=== PATIENT | female | born 1965 | race Caucasian/White ===

== ENCOUNTER → 2018-04-28 15:05 | Outpatient (CLI) | payer OTHER, SELFPAY ==
--- NOTE | 2018-04-28 15:16 | XR_ITS ---
XR knee LT 3V HISTORY: ITS.REASON: LEFT KNEE PAIN ORDERING PHYSICIAN: Rashard Mejia PATIENT AGE: 52 years COMPARISON: None FINDINGS: No fracture or dislocation. No lytic or blastic change. Normal mineralization. No significant arthritic changes evident. There is increased density in the suprapatellar region suggesting knee joint effusion. IMPRESSION: Suprapatellar effusion otherwise negative left knee
== END ==
PROVIDERS: PCP Internal Medicine; Visit Provider Internal Medicine
DX: M25.562 Pain in left knee (principal)
CPT/HCPCS: 73562

== ENCOUNTER → 2018-06-16 13:58 | Outpatient (CLI) | payer OTHER, SELFPAY ==
--- NOTE | 2018-06-16 14:04 | US_ITS ---
US soft tissue head and neck CLINICAL INDICATION: ITS.REASON: LIPOMA, NECK MASS ORDERING PHYSICIAN: Rashard Mejia PATIENT AGE: 52 years Comparison: None FINDINGS: Corresponding to the palpable abnormality the left neck there is a 1.6 x 0.6 cm area of heterogeneous echogenicity mostly hypoechoic with internal lacy appearance consistent with a lipoma. These within the left neck adjacent to the carotid there is a small lymph node which measures 1.6 x 0.6 cm. No fluid collections are evident. IMPRESSION: Palpable abnormality of the left neck corresponds to a small lipoma
== END ==
PROVIDERS: PCP Internal Medicine; Visit Provider Internal Medicine
DX: R22.1 Localized swelling, mass and lump, neck (principal)
CPT/HCPCS: 76536

== ENCOUNTER → 2018-11-06 14:57 | Outpatient (CLI) | payer BC, SELFPAY ==
--- NOTE | 2018-11-06 15:02 | XR_ITS ---
XR foot wt bearing LT 3V HISTORY: Bilateral foot pain ITS.REASON: pain ORDERING PHYSICIAN: Alma Cyr DPM PATIENT AGE: 53 years COMPARISON: Right foot same date FINDINGS: No fracture or dislocation. No lytic or blastic change. There is normal mineralization.. The joint spaces are well-preserved. No significant degenerative/arthritic changes. No erosive changes evident. There is a small spur of the calcaneus at insertion of plantar tendon. The plantar arch is normal. IMPRESSION: Small calcaneal spur otherwise negative left foot
--- NOTE | 2018-11-06 15:02 | XR_ITS ---
XR foot wt bearing RT 3V HISTORY: Bilateral foot pain ITS.REASON: pain ORDERING PHYSICIAN: Alma Cyr DPM PATIENT AGE: 53 years COMPARISON: Left foot same date FINDINGS: Weightbearing AP lateral and oblique films were obtained. No fracture or dislocation. No lytic or blastic change. There is normal mineralization.. The joint spaces are well-preserved. No significant degenerative/arthritic changes. No erosive changes evident. There is a small spur of the calcaneus at insertion of plantar tendon. The plantar arch is normal. IMPRESSION: Small calcaneal spur otherwise negative right foot
== END ==
PROVIDERS: PCP Internal Medicine; Visit Provider Podiatrist
DX: M79.672 Pain in left foot (principal); M79.671 Pain in right foot
CPT/HCPCS: 73630

== ENCOUNTER → 2019-04-23 10:52 | Outpatient (CLI) | payer BC, SELFPAY ==
[2019-04-23 12:09] LABS: Basophils % 0.4 % (0.1-2.0); Eosinophils # 0.2 K/mm3 (0.0-0.4); Eosinophils % 2.9 % (0.1-12.0); Hematocrit 41.3 % (37.0-47.0); Hemoglobin 13.4 g/dL (12.2-16.2); Lymphocytes # 2.4 K/mm3 (0.7-4.5); Lymphocytes % 28.6 % (10-50); Mean Corpuscular HGB Conc 32.5 g/dL (31.8-35.4); Mean Corpuscular Hemoglobin 27.4 pg (27.0-31.2); Mean Corpuscular Volume 84.2 fl (81-99); Mean Platelet Volume 6.6 fl (7.4-10.4); Monocytes # 0.5 K/mm3 (0.1-1.0); Monocytes % 5.5 % (1.7-9.3); Neutrophils # 5.2 K/mm3 (1.8-7.8); Neutrophils % 62.7 % (37.0-80.0); Platelet Count 399 K/mm3 (142-424); Red Cell Distribution Width 13.3 % (11.5-17.5); White Blood Count 8.3 K/mm3 (4.8-10.8)
[2019-04-23 12:57] LABS: Alanine Aminotransferase 32 U/L (12-78); Albumin Level 3.8 gm/dL (3.4-5.0); Albumin/Globulin Ratio 1.2 (1.1-1.8); Alkaline Phosphatase 80 U/L (46-116); Anion Gap 14.4 mEq/L (5-15); Aspartate Amino Transferase 22 U/L (15-37); Bilirubin,Total 0.4 mg/dL (0.2-1.0); Blood Urea Nitrogen 9 mg/dL (7-18); Calcium 9.3 mg/dL (8.5-10.1); Carbon Dioxide 27 mmol/L (21.0-32.0); Chloride 103 mmol/L (98-107); Chol/HDL Ratio 3.8 (1-3.5); Cholesterol 144 mg/dL (140-200); Creatinine,Serum 0.92 mg/dL (0.55-1.02); Estimated Glomerular Filt Rate 64 ml/min (>60); GFR (African American) 78 ML/MIN (>60); Globulin 3.1 gm/dl (1.3-3.2); Glucose 90 mg/dL (74-106); HDL Cholesterol 38 mg/dL (29-89); LDL Cholesterol 93 mg/dL (0-130); Potassium 4.4 mmoL/L (3.5-5.1); Sodium 140 mmol/L (136-145); Thyroid Stimulating Hormone 3.71 uIU/ml (0.358-3.740); Total Protein,Serum 6.9 gm/dL (6.4-8.2); Triglycerides 63 mg/dL (30-200); VLDL Cholesterol 13 mg/dL (0-40)
== END ==
PROVIDERS: Visit Provider Internal Medicine
DX: G47.33 Obstructive sleep apnea (adult) (pediatric) (principal); I10 Essential (primary) hypertension; R00.2 Palpitations; D17.9 Benign lipomatous neoplasm, unspecified
CPT/HCPCS: 36415; 80053; 80061; 84443; 85025

== ENCOUNTER → 2020-02-21 09:08 | Outpatient (CLI) | payer OTHER, SELFPAY ==
--- NOTE | 2020-02-21 09:13 | MM_ITS ---
PROCEDURE: MM DIG SCREENING MAMM BI W/CAD Digital Breast Tomosynthesis Included CLINICAL INDICATION: SCREENING There is no personal or family history of breast cancer COMPARISON: DMSB DIGITAL MAMM-SCREEN BILATERAL from 08/27/2011 [place] MAMMO SCRN DIGITL BILAT from 02/19/2015 [place] MAMMO DIAG DIGITL LT from 03/04/2015 TECHNIQUE: Standard CC and MLO images and 3D Tomosynthesis was obtained. R2 CAD reviewed. FINDINGS: Moderate scattered fibroglandular densities are seen throughout both breasts. There are couple of benign-appearing microcalcifications in each breast. There is no suspicious lesion in either breast and no suspicious microcalcifications. IMPRESSION: Fibrofatty parenchyma with no suspicious lesions seen BI-RAD Category: 2 Benign Finding(s) FOLLOW-UP: 1YR 1 Year Follow-up (A letter has been sent to the patient regarding results of the study.) Dictated by: Dr. Roberto Ellington MD 03/01/2020 08:[address] Roberto Ellington MD in [place] 03/01/2020 08:17
== END ==
PROVIDERS: PCP Internal Medicine; Visit Provider Internal Medicine
DX: Z12.31 Encounter for screening mammogram for malignant neoplasm of breast (principal)
CPT/HCPCS: 77063; 77067

== ENCOUNTER → 2021-08-18 14:14 | Outpatient (CLI) | payer BC, SELFPAY | PROVIDERS: Visit Provider Nurse Practitioner | DX: U07.1 COVID-19 (principal) | CPT/HCPCS: C9803; U0003; U0005 ==

== ENCOUNTER → 2022-11-18 14:59 | Outpatient (CLI) | payer BC, SELFPAY ==
--- NOTE | 2022-11-18 15:03 | MM_ITS ---
PROCEDURE INFORMATION: Exam: MG Bilateral Screening 3D Mammography Exam date and time: 11/18/2022 3:00 PM Age: 57 years old Clinical indication: Screening. No family history of breast cancer. TECHNIQUE: Imaging protocol: Bilateral Screening tomosynthesis and 2D mammography including computer-aided detection (CAD) when performed. COMPARISON: 1. MG MM DIG SCREENING MAMM BI W/CAD 02/21/2020 9:26 AM 2. MG MA MAMMO DIAG DIGITL LT 03/04/2015 10:12 AM 3. MG DMSB DIGITAL MAMM-SCREEN BILATERAL 08/27/2011 3:42 PM FINDINGS: MAMMOGRAPHY: Breast composition: There are scattered areas of fibroglandular density. Mass: None. Architectural distortion: None. Calcifications: Bilateral benign-appearing secretory type calcifications. No suspicious calcifications. Asymmetric density: None. Skin thickening: None. Axillary adenopathy: None. IMPRESSION: No mammographic evidence of malignancy. Annual screening is recommended unless otherwise clinically indicated. ASSESSMENT: BI-RADS Category 2: Benign
== END ==
PROVIDERS: PCP Internal Medicine; Visit Provider Internal Medicine
DX: Z12.31 Encounter for screening mammogram for malignant neoplasm of breast (principal)
CPT/HCPCS: 77063; 77067

== ENCOUNTER → 2022-12-14 15:26 | Outpatient (CLI) | payer BC, SELFPAY | LOC: RT 15:26 | PROVIDERS: PCP Internal Medicine; Visit Provider Internal Medicine | DX: R06.09 Other forms of dyspnea (principal) | CPT/HCPCS: 93306 ==

== ENCOUNTER 2022-12-20 16:00 | Outpatient (RCR) | payer BC, SELFPAY ==
--- NOTE | 2022-11-25 18:10 | HMH.PTOPEV ---
PT Outpatient Evaluation Rehab PT Outpatient Evaluation Start: 11/25/22 15:03 Freq: Status: Active Protocol: Document 11/25/22 15:03 [email or web address] (Rec: 11/25/22 18:10 [email or web address] [email or web address]) E-signed By Omi Vera, PT Outpatient Therapy Subjective History Subjective History Pt. is a 57 year old female whom presents to [facility] Outpatient Physical Therapy Services in [place] for the initial evaluation this date( 11/25/22) w/ c/o chronic and intermittent RLE and R-sided LB/hip P!, numbness, and muscle spasms of insidious onset that has progressively worsened in the last 6 months to 1 year. Pt. reports initial onset of symptoms was May 2021 while visiting [place], [place], but stated they were more intermittent/intense than current symptoms. Pt. described symptoms as more numbness w/ initial onset. Pt. reports symptoms then began to worsen 6 months to 1 year ago. Pt. reports symptoms began(2020) out as numbness that would radiate into the foot/digits, now(6 months to 1 year ago) pt. describes symptoms as a sharp and shooting P! that refers to the foot/digits. Pt. also reports sleep has been disrupted secondary to current symptoms. Pt. repots symptoms worsen w/ standing and ambulation. Pt. reports having symptom relief w/ sitting, prescribed medications, and laying down. Pt. reports sometimes taking 15-20 minutes after sitting until symptoms subside. Pt. denies having recent diagnostic imaging nor injections for current complaint. Pt. denies having numbness/tingling into LLE, denies saddle paresthesia,
== END 2023-01-24 16:40 | disposition home or self-care (01) ==
LOC: PT 16:00
PROVIDERS: PCP Internal Medicine; Visit Provider Internal Medicine
DX: M54.31 Sciatica, right side (principal)
CPT/HCPCS: 97012; 97110; 97140; 97163

== ENCOUNTER → 2023-02-17 12:53 | Outpatient (CLI) | payer BC, SELFPAY ==
--- NOTE | 2023-02-17 12:59 | MR_ITS ---
FINAL REPORT CLINICAL HISTORY: SCIATICA RIGHT SIDED BACK PAIN. COMPARISON: None FINDINGS: Multiplanar MR imaging of the lumbar spine was performed without contrast. On the sagittal T2-weighted images, disc degeneration is seen at several levels. The vertebral alignment is normal. There is no evidence of fracture. No bony mass is identified. The conus has an unremarkable appearance. T12-L1: No significant canal stenosis or neuroforaminal narrowing. L1-2: An annular bulge is present. There is no significant canal stenosis or neural foraminal narrowing. L2-3: An annular bulge is present with mild anterior osteophyte formation. There is mild bilateral neural foraminal narrowing. L3-4: An annular bulge is present with mild anterior osteophyte formation. There is mild bilateral neural foraminal narrowing. L4-5: An annular bulge is with mild anterior osteophyte formation. There is a left paracentral disc protrusion which produces left L5 nerve root impingement. There is mild AP canal diameter stenosis with an AP canal diameter of 7 mm. Moderate bilateral neural foraminal narrowing is present. L5-S1: An annular bulge is present. There is a left sided broad-based foraminal disc protrusion, and mild left neural foraminal narrowing. IMPRESSION: Multilevel degenerative disc disease and spondylosis as described, most severe at the L4-5 and L5-S1 levels. Reviewed, Interpreted and Dictated by Gilberto Mendosa III, MD Transcribed by Andressa Rasmussen Authenticated and [facility]
== END ==
LOC: RAD 12:53
PROVIDERS: PCP Internal Medicine; Visit Provider Internal Medicine
DX: M54.50 Low back pain, unspecified (principal); M54.31 Sciatica, right side
CPT/HCPCS: 72148; 76376

== ENCOUNTER 2025-02-18 16:52 | Outpatient (CLI) | payer BC, SELFPAY ==
--- OUTSIDE RECORDS SUMMARY | 2025-02-18 16:54 | XMS_ITS | Clinical Summary ---
Author Organization [facility] Address [address] [place] [address] Care Team Providers Care Customs Manager Name Role Phone Rashard Mejia MD Primary Care Provider [phone] Allergies No known active allergies Medications meloxicam (Mobic) 7.5 MG tablet TAKE ONE TABLET BY MOUTH EVERY DAY --TAKE WITH FOOD-- 04/14/2021 Active metoprolol succinate XL (Toprol-XL) 100 MG 24 hr tablet Take 100 mg by mouth 1 (one) time each day. 04/14/2021 Active Social History Tobacco Use Types Packs/Day Years Used Date Smoking Tobacco: Never Smokeless Tobacco: Never Alcohol Use Standard Drinks/Week Comments Never 0 (1 standard drink = 0.6 oz pur e alcohol) Comments Unknown Sex and Gender Information Value Date Recorded Sex Assigned at Not on file Legal Sex Female 8:22 PM EDT Gender Identity Not on file Sexual Orientation Not on file Last Filed Vital Signs Vital Sign Reading Time Taken Comments Blood Pressure 149/84 06/12/2021 11:20 AM EDT Pulse 73 06/12/2021 11:20 AM EDT Temperature 36.9 C (98.5 F) 06/12/2021 11:20 AM EDT Respiratory Rate - - Oxygen Saturation - - Inhaled Oxygen Concentration - - Weight 117 kg (258 lb) 06/12/2021 11:20 AM EDT Height 167.6 cm (5' 6 ) 06/12/2021 11:20 AM EDT Body Mass Index 41.64 06/12/2021 11:20 AM EDT Plan of Treatment Health Maintenance Due Date Last Done Comments [facility]-Depression Screening 1965 [facility]-Infant/Child/Adol SDOH Screenings 1965 [facility]- SDOH Screenings 1985 [facility]-Adult SDOH Screenings 1985 [facility]-DTaP,Tdap,and Td Vaccine s (1 - Tdap) 1986 [facility]-Hepatitis B Vaccines (1 of 3 - 19+ 3-dose series) 1986 [facility]-Pap Smear 12/26/1999 12/25/1996 [facility]-Cervical Cancer Screening 12/25/2001 [facility]-HPV/Cotest 12/25/2001 12/25/1996 CT Colonography 2012 Colonoscopy 2012 FIT-DNA 2012 FIT 2012 FOBT 2012 Sigmoidoscopy 2012 [facility]-Colorectal Cancer Screening 2012 [facility]-Pneumococcal Vaccine: 50 + Years (1 of 1 - PCV) 2017 [facility]-Zoster Vaccines (1 of 2) 2017 [id number] Vaccine (3 - season) 2024 09/16/2020, 08/15/2020 [facility]-Influenza Vaccine (#1) 2025 HPV Vaccines Aged Out No longer eligi ble based on patient's age to complete this topic [facility]-HIB Vaccines Aged Out No longer e ligible based on patient's age to complete this topic [facility]-Hepatitis A Vaccines Aged Out No longer eligible based on patient's age to complete this topic [facility]-IPV Vaccines Aged Out No longer e ligible based on patient's age to complete this topic [facility]-Rotavirus Vaccines Aged Out No lo nger eligible based on patient's age to complete this topic Procedures Procedure Name Priority Date/Time Associated Diagnosis Comments CYTO DATA CONVERSION Routine 12/25/1996 12:00 AM EDT from Last 3 Months or Most Recently Relevant to Health Maintenance Results * Cytology (12/25/1996 12:00 AM EDT) 12/25/1996 12/26/1996 Narrative [facility] - 01/01/1997 12:00 AM EDT [facility] MR #: [id number] [employer] [place], [place] [address] 1965 (Age: 31) FW Collect Date: 12/25/1996 00:00 Receipt Date: 12/26/1996 00:00 Page 1 DEPARTMENT OF PATHOLOGY AND LABORATORY MEDICINE CYTOPATHOLOGY REPORT Email: [email or web address] [phone] * Converted Case * This report may not match the original report format ATTENDING MD/Practitioner: Brie Tsai MD Service: [facility] Location: Reported: 01/01/1997 00:00 Collected: 12/25/1996 00:00 INTERPRETATION THIN PREP(CERVICAL/ENDOCERVICAL) WITHIN NORMAL LIMITS. SATISFACTORY FOR INTERPRETATION. Electronically Signed Out By Lucas Flowers ETHAN Paz (ASCP) No Signature Required Cervical cytology is a screening test primarily for squamous cancers and precursors and has associated false negative and positive results. New technologies such as liquid based sampling may decrease but will not eliminate all false negative results. Regular screening and follow-up of unexplained clinical signs and symptoms are recommended to minimize false negative results. Please see the ASCCP website (www.asccp.org) for followup recommendations. If HPV testing was requested, correlation with the results is suggested (please call Microbiology at [phone] for results). CLINICAL INFORMATION: Menstrual History: {Not Provided} Date of Last Menstrual Period: {Not Provided} SPECIMEN DESCRIPTION: A: THIN PREP(CERVICAL/ENDOCERVICAL)., THIN PREP PAP ICD: F: {Not Entered} SNOMED CODES: 1; [id number] [id number] [id number] In cases where a pathologist has signed out the report, the service has been rendered in part by a resident. The signing pathologist has performed and is responsible for the reported pathologic evaluation. us Historical Provider MD LAB PATHOLOGY ORDERABLES Final Result SUNQUEST from Last 3 Months or Most Recently Relevant to Health Maintenance Insurance [employer] [id number] [employer] Care Teams Customs Manager Relationship Specialty Start Date End Date Rashard Mejia MD [address] [place] [address] [address] [place] [address] PCP - General 04/24/21
--- NOTE | 2025-02-18 17:00 | MM_ITS ---
PROCEDURE INFORMATION: Exam: MG Bilateral Screening 3D Mammography Exam date and time: 02/18/2025 5:02 PM Age: 59 years old Clinical indication: Screening. No family history of breast cancer. TECHNIQUE: Imaging protocol: Bilateral Screening tomosynthesis and 2D mammography including computer-aided detection (CAD) when performed. COMPARISON: 1. MG MM DIG SCREENING MAMM BI W/CAD 11/18/2022 3:00 PM 2. MG MM DIG SCREENING MAMM BI W/CAD 02/21/2020 9:26 AM 3. MG MA MAMMO DIAG DIGITL LT 03/04/2015 10:12 AM 4. MG MA MAMMO SCRN DIGITL BILAT 02/19/2015 11:30 AM FINDINGS: MAMMOGRAPHY: Breast composition: There are scattered areas of fibroglandular density. Mass: None. Architectural distortion: None. Calcifications: No suspicious calcifications. Asymmetric density: None. Skin thickening: None. Axillary adenopathy: None. IMPRESSION: No mammographic evidence of malignancy. Annual screening is recommended unless otherwise clinically indicated. ASSESSMENT: BI-RADS Category 1: Negative.
== END 2025-02-18 23:59 | disposition home or self-care (01) ==
LOC: RAD 16:52
PROVIDERS: PCP Internal Medicine; Visit Provider Internal Medicine
DX: Z12.31 Encounter for screening mammogram for malignant neoplasm of breast (principal); R92.323 Mammographic fibroglandular density, bilateral breasts
CPT/HCPCS: 77063; 77067